=== PATIENT | female | born 1965 | race Caucasian/White ===

== ENCOUNTER → 2016-11-18 | Outpatient (CLI) | payer BC | LOC: M WUC 08:13 | PROVIDERS: ATTEND Family Medicine | DX: E03.8 Other specified hypothyroidism (principal) ==

== ENCOUNTER → 2017-01-31 | Outpatient (CLI) | payer BC ==
[2017-01-31 10:21] LABS: CHOLESTEROL LEVEL 214 MG/DL (<200); TRIGLYCERIDES LEVEL 210 MG/DL (<150); URIC ACID 5.1 MG/DL (2.6-6.0)
[2017-02-02 00:06] LABS: SJOGREN'S ANTI SS-A <0.2 AI (0.0-0.9); SJOGREN'S ANTI SS-B <0.2 AI (0.0-0.9)
== END ==
LOC: M WUC 08:03
PROVIDERS: ATTEND Family Medicine
DX: M77.42 Metatarsalgia, left foot (principal)

== ENCOUNTER → 2017-05-05 | Outpatient (CLI) | payer BC ==
--- NOTE | 2017-05-05 16:34 | REP ---
MRI LEFT FOOT: Multiple sequences obtained in the axial, coronal, and sagittal planes. There is ill-defined high signal on T2 weighted images in the proximal and mid thirds of the third metatarsal compatible with stress related marrow edema. No other stress fracture is seen. Arthritic change with mild subchondral marrow edema is seen at the joint between the middle cuneiform and base of the 2nd metatarsal. Ill defined soft tissue edema is seen in the dorsal soft tissues adjacent to the third metatarsal. Flexor and extensor tendons appear intact with no tenosynovitis. Mild joint effusion is seen at the tibial talar joint. No ganglion cyst is seen. Plantar tendon is intact. There is no plantar fasciitis. I see no other significant abnormality. IMPRESSION: There appears to be stress related marrow edema in the proximal and mid third of the shaft of the 3rd metatarsal. There is adjacent dorsal soft tissue edema. No other evidence of stress fracture. Signed by Jono Watters MD 05/05/2017 05:12 P
== END ==
LOC: M RAD 14:13
PROVIDERS: ATTEND Podiatrist
DX: S92.335A Nondisplaced fracture of third metatarsal bone, left foot, initial encounter for closed fracture (principal); M79.672 Pain in left foot; X58.XXXA Exposure to other specified factors, initial encounter; Y92.89 Other specified places as the place of occurrence of the external cause; Y93.89 Activity, other specified; Y99.8 Other external cause status

== ENCOUNTER 2017-10-02 15:55 | Emergency (ER) | payer BC ==
[2017-10-02] MEDS: NS 1,000 ML IV (17:37)
[2017-10-02] MEDS: METOCLOPRAMIDE INJ 10MG/2ML VIAL (J2765) IV (17:37)
[2017-10-02 18:11] LABS: INFLUENZA A AMPLIFICATION NEGATIVE (NEGATIVE); INFLUENZA B AMPLIFICATION NEGATIVE (NEGATIVE)
[2017-10-02 18:20] LABS: ANION GAP 8 MEQ/L (8-16); BLOOD UREA NITROGEN 16 MG/DL (7-18); CALCIUM LEVEL 9.3 MG/DL (8.5-10.1); CARBON DIOXIDE LEVEL 30 MEQ/L (21-32); CHLORIDE LEVEL 107 MEQ/L (98-107); CREATININE FOR GFR 0.83 MG/DL (0.55-1.30); GLOMERULAR FILTRATION RATE > 60.0 (>51); GLUCOSE, FASTING 107 MG/DL (70-100); POTASSIUM SERUM 4.1 MEQ/L (3.5-5.1); SODIUM LEVEL 145 MEQ/L (136-145)
== END 2017-10-02 19:29 | disposition home or self-care (01) ==
LOC: M ED 15:55
DX: A08.4 Viral intestinal infection, unspecified (principal); I10 Essential (primary) hypertension; Z98.890 Other specified postprocedural states
CPT/HCPCS: J2765

== ENCOUNTER → 2017-10-20 | Outpatient (CLI) | payer BC | LOC: M RAD 18:14 | DX: M79.671 Pain in right foot (principal); M77.31 Calcaneal spur, right foot | CPT/HCPCS: 73630 ==

== ENCOUNTER → 2017-10-20 | Outpatient (CLI) | payer BC ==
[2017-10-20 15:38] LABS: HEMATOCRIT 38.1 % (36.0-47.0); HEMOGLOBIN 13.2 g/dl (12.0-16.0); MEAN CORPUSCULAR HEMOGLOBIN 30.6 pg (27.0-33.0); MEAN CORPUSCULAR HGB CONC 34.6 g/dl (32.0-36.5); MEAN CORPUSCULAR VOLUME 88.2 fl (80.0-96.0); PLATELET COUNT, AUTOMATED 206 10^3/uL (150-450); RED BLOOD COUNT 4.32 10^6/uL (4.00-5.40); RED CELL DISTRIBUTION WIDTH 11.9 % (11.5-14.5); WHITE BLOOD COUNT 5.5 10^3/uL (4.0-10.0)
[2017-10-20 15:52] LABS: ALBUMIN 4.1 GM/DL (3.2-5.2); ALBUMIN/GLOBULIN RATIO 1.21 (1.00-1.93); ALKALINE PHOSPHATASE 58 U/L (45-117); ALT/SGPT 31 U/L (12-78); ANION GAP 6 MEQ/L (8-16); AST/SGOT 32 U/L (7-37); BILIRUBIN,TOTAL 0.5 MG/DL (0.2-1.0); BLOOD UREA NITROGEN 14 MG/DL (7-18); CALCIUM LEVEL 9.1 MG/DL (8.5-10.1); CARBON DIOXIDE LEVEL 30 MEQ/L (21-32); CHLORIDE LEVEL 103 MEQ/L (98-107); CREATININE FOR GFR 0.73 MG/DL (0.55-1.30); GLOMERULAR FILTRATION RATE > 60.0 (>51); GLUCOSE, FASTING 99 MG/DL (70-100); POTASSIUM SERUM 4.4 MEQ/L (3.5-5.1); SODIUM LEVEL 139 MEQ/L (136-145); TOTAL PROTEIN 7.5 GM/DL (6.4-8.2)
[2017-10-20 16:27] LABS: D-DIMER QUANT < 270.0 ng/ml (<500)
== END ==
LOC: M LAB 15:14
DX: I82.4Z1 Acute embolism and thrombosis of unspecified deep veins of right distal lower extremity (principal)
CPT/HCPCS: 93971

== ENCOUNTER → 2017-11-03 | Outpatient (CLI) | payer BC ==
[2017-11-03 17:10] LABS: URIC ACID 6.1 MG/DL (2.6-6.0)
[2017-11-03 17:10] LABS: RHEUMATOID FACTOR QUANT < 10.0 IU/ML (0-15.0)
[2017-11-03 18:13] LABS: ERYTHROCYTE SEDIMENTATION RATE 6 mm/hr (0-30)
[2017-11-04 09:18] LABS: DRVV SCREEN 40.4 SEC
[2017-11-06 00:06] LABS: CYCLIC CITRULLINATED PEPTIDE 7 units (0-19)
== END ==
LOC: M WUC 14:58
DX: M25.50 Pain in unspecified joint (principal)
CPT/HCPCS: 84550

== ENCOUNTER → 2017-12-08 | Outpatient (CLI) | payer BC | LOC: M RAD 09:26 | DX: M84.374A Stress fracture, right foot, initial encounter for fracture (principal); M77.31 Calcaneal spur, right foot; X58.XXXA Exposure to other specified factors, initial encounter; Y92.9 Unspecified place or not applicable; Y93.9 Activity, unspecified | CPT/HCPCS: 78315 ==

== ENCOUNTER → 2019-01-08 | Outpatient (CLI) | payer BC ==
[~2019-01-08] MED LIST: HYDR12.55; LEVO125T4; METO1TAB7; METO1TAB7 PO; OXYB10TA; PRIL20CA9 PO; REGL10TA6 PO; VITA100066 PO
[2019-01-08 12:44] LABS: HEMATOCRIT 39.4 % (36.0-47.0); HEMOGLOBIN 13.1 g/dl (12.0-15.5); MEAN CORPUSCULAR HEMOGLOBIN 29.9 pg (27.0-33.0); MEAN CORPUSCULAR HGB CONC 33.2 g/dl (32.0-36.5); PLATELET COUNT, AUTOMATED 205 10^3/uL (150-450); RED BLOOD COUNT 4.38 10^6/uL (4.00-5.40); WHITE BLOOD COUNT 3.8 10^3/uL (4.0-10.0)
[2019-01-08 12:52] LABS: ALBUMIN 3.9 GM/DL (3.2-5.2); ALT/SGPT 26 U/L (12-78); BILIRUBIN,TOTAL 0.5 MG/DL (0.2-1.0); BLOOD UREA NITROGEN 12 MG/DL (7-18); CALCIUM LEVEL 9.4 MG/DL (8.5-10.1); CARBON DIOXIDE LEVEL 31 MEQ/L (21-32); CHLORIDE LEVEL 106 MEQ/L (98-107); CHOLESTEROL LEVEL 178 MG/DL (<200); CHOLESTEROL RISK RATIO 4.238 (<5); CREATININE FOR GFR 0.77 MG/DL (0.55-1.30); GLOMERULAR FILTRATION RATE > 60.0 (>51); GLUCOSE, FASTING 96 MG/DL (70-100); HDL CHOLESTEROL 42 MG/DL (>40); LDL CHOLESTEROL 111 MG/DL (<100); NON-HDL-C 136 MG/DL; POTASSIUM SERUM 4.3 MEQ/L (3.5-5.1); SODIUM LEVEL 143 MEQ/L (136-145); TOTAL PROTEIN 6.5 GM/DL (6.4-8.2); TRIGLYCERIDES LEVEL 125 MG/DL (<150)
== END ==
LOC: M WUC 08:36
PROVIDERS: ATTEND Nurse Practitioner Family
DX: E03.8 Other specified hypothyroidism (principal); I10 Essential (primary) hypertension

== ENCOUNTER → 2019-06-24 | Outpatient (CLI) | payer BC ==
[~2019-06-24] MED LIST changes: -OXYB10TA; +OXYB10TA2
[2019-06-24 11:06] LABS: BLOOD UREA NITROGEN 12 MG/DL (7-18); CALCIUM LEVEL 9.5 MG/DL (8.5-10.1); CARBON DIOXIDE LEVEL 32 MEQ/L (21-32); CHLORIDE LEVEL 102 MEQ/L (98-107); CREATININE FOR GFR 0.73 MG/DL (0.55-1.30); FREE T3 2.3 PG/ML (2.2-4.0); FREE T4 1.04 NG/DL (0.76-1.46); GLOMERULAR FILTRATION RATE > 60.0 (>51); GLUCOSE, FASTING 84 MG/DL (70-100); SODIUM LEVEL 139 MEQ/L (136-145)
== END ==
LOC: M WUC 08:05
PROVIDERS: ATTEND Family Medicine
DX: E03.8 Other specified hypothyroidism (principal); I10 Essential (primary) hypertension

== ENCOUNTER → 2019-06-27 | Outpatient (REF) | payer BC | LOC: M LAB REF 08:13 | PROVIDERS: ATTEND Family Medicine | DX: K21.9 Gastro-esophageal reflux disease without esophagitis (principal) ==

== ENCOUNTER → 2020-03-02 | Outpatient (CLI) | payer BC ==
[~2020-03-02] MED LIST changes: -OXYB10TA2; +OXYB10TA23
[2020-03-02 09:21] LABS: HEMATOCRIT 40.8 % (36.0-47.0); HEMOGLOBIN 13.8 g/dl (12.0-15.5); MEAN CORPUSCULAR HEMOGLOBIN 30.3 pg (27.0-33.0); MEAN CORPUSCULAR HGB CONC 33.8 g/dl (32.0-36.5); MEAN CORPUSCULAR VOLUME 89.7 fl (80.0-96.0); PLATELET COUNT, AUTOMATED 198 10^3/uL (150-450); RED BLOOD COUNT 4.55 10^6/uL (4.00-5.40)
[2020-03-02 10:43] LABS: ALT/SGPT 27 U/L (12-78); BILIRUBIN,TOTAL 0.6 MG/DL (0.2-1.0); BLOOD UREA NITROGEN 16 MG/DL (7-18); CALCIUM LEVEL 9.2 MG/DL (8.5-10.1); CARBON DIOXIDE LEVEL 29 MEQ/L (21-32); CHLORIDE LEVEL 103 MEQ/L (98-107); CHOLESTEROL LEVEL 249 MG/DL (<200); CREATININE FOR GFR 0.76 MG/DL (0.55-1.30); GLOMERULAR FILTRATION RATE > 60.0 (>51); GLUCOSE, FASTING 85 MG/DL (70-100); HDL CHOLESTEROL 50 MG/DL (>40); LDL CHOLESTEROL 147 MG/DL (<100); NON-HDL-C 199 MG/DL; POTASSIUM SERUM 4.1 MEQ/L (3.5-5.1); SODIUM LEVEL 140 MEQ/L (136-145); TOTAL PROTEIN 7.2 GM/DL (6.4-8.2); TRIGLYCERIDES LEVEL 258 MG/DL (<150)
[2020-03-02 12:00] LABS: TOTAL 25(OH) VITAMIN D 18.3 NG/ML (30.0-100.0)
== END ==
LOC: M WUC 08:11
PROVIDERS: ATTEND Family Medicine
DX: E78.2 Mixed hyperlipidemia (principal)

== ENCOUNTER → 2020-06-17 | Outpatient (REF) | payer BC | LOC: M LAB REF 13:25 | PROVIDERS: ATTEND Nurse Practitioner Family | DX: N39.0 Urinary tract infection, site not specified (principal) ==

== ENCOUNTER → 2020-07-03 | Outpatient (CLI) | payer BC ==
[2020-07-03 10:49] LABS: CHOLESTEROL RISK RATIO 3.803 (<5); FREE T3 2.9 PG/ML (2.2-4.0); FREE T4 1.44 NG/DL (0.76-1.46); THYROID STIMULATING HORMONE 0.098 uIU/ML (0.358-3.740)
== END ==
LOC: M WUC 08:02
PROVIDERS: ATTEND Family Medicine
DX: E78.2 Mixed hyperlipidemia (principal); E03.9 Hypothyroidism, unspecified

== ENCOUNTER → 2020-10-05 | Outpatient (CLI) | payer BC ==
[2020-10-05 12:57] LABS: FREE T3 3.1 PG/ML (2.2-4.0); FREE T4 1.4 NG/DL (0.76-1.46); THYROID STIMULATING HORMONE 0.108 uIU/ML (0.358-3.740)
[2020-10-05 12:58] LABS: TOTAL 25(OH) VITAMIN D 39.7 NG/ML (30.0-100.0)
== END ==
LOC: M WUC 09:04
PROVIDERS: ATTEND Registered Nurse
DX: E03.2 Hypothyroidism due to medicaments and other exogenous substances (principal); E55.9 Vitamin D deficiency, unspecified

== ENCOUNTER → 2020-11-30 | Outpatient (CLI) | payer BC ==
[2020-11-30 14:02] LABS: FREE T3 2.5 PG/ML (2.2-4.0); FREE T4 0.98 NG/DL (0.76-1.46); THYROID STIMULATING HORMONE 1.15 uIU/ML (0.358-3.740)
== END ==
LOC: M WUC 08:11
PROVIDERS: ATTEND Family Medicine
DX: E03.9 Hypothyroidism, unspecified (principal)

== ENCOUNTER → 2021-03-12 | Outpatient (CLI) | payer BC ==
[2021-03-12 10:32] LABS: HEMATOCRIT 40.8 % (36.0-47.0); HEMOGLOBIN 13.5 g/dl (12.0-15.5); MEAN CORPUSCULAR HEMOGLOBIN 30.4 pg (27.0-33.0); MEAN CORPUSCULAR HGB CONC 33.1 g/dl (32.0-36.5); MEAN CORPUSCULAR VOLUME 91.9 fl (80.0-96.0); PLATELET COUNT, AUTOMATED 209 10^3/uL (150-450); RED BLOOD COUNT 4.44 10^6/uL (4.00-5.40); WHITE BLOOD COUNT 5.3 10^3/uL (4.0-10.0)
[2021-03-12 11:13] LABS: ALBUMIN 3.7 GM/DL (3.2-5.2); ALT/SGPT 25 U/L (12-78); BILIRUBIN,TOTAL 0.5 MG/DL (0.2-1.0); BLOOD UREA NITROGEN 17 MG/DL (7-18); CALCIUM LEVEL 9.1 MG/DL (8.5-10.1); CARBON DIOXIDE LEVEL 34 MEQ/L (21-32); CHLORIDE LEVEL 105 MEQ/L (98-107); CHOLESTEROL LEVEL 245 MG/DL (<200); CHOLESTEROL RISK RATIO 4.454 (<5); CREATININE FOR GFR 0.76 MG/DL (0.55-1.30); FREE T3 2.4 PG/ML (2.2-4.0); GLOMERULAR FILTRATION RATE > 60.0 (>51); GLUCOSE, FASTING 89 MG/DL (70-100); HDL CHOLESTEROL 55 MG/DL (>40); LDL CHOLESTEROL 154 MG/DL (<100); NON-HDL-C 190 MG/DL; POTASSIUM SERUM 4.7 MEQ/L (3.5-5.1); SODIUM LEVEL 142 MEQ/L (136-145); TOTAL PROTEIN 6.8 GM/DL (6.4-8.2); TRIGLYCERIDES LEVEL 182 MG/DL (<150); URIC ACID 5.2 MG/DL (2.6-6.0)
== END ==
LOC: M WUC 08:19
PROVIDERS: ATTEND Family Medicine
DX: E03.8 Other specified hypothyroidism (principal); K21.9 Gastro-esophageal reflux disease without esophagitis; I10 Essential (primary) hypertension; L82.1 Other seborrheic keratosis; R00.2 Palpitations

== ENCOUNTER → 2021-06-26 | Outpatient (CLI) | payer BC ==
[2021-06-26 10:28] LABS: BASO # 0.1 10^3/uL (0.0-0.2); BASO % 1.1 % (0.0-1.0); EOS # 0.2 10^3/uL (0.0-0.5); EOS % 3.6 % (0.0-3.0); HEMATOCRIT 41.4 % (36.0-47.0); LYMPH # 1.7 10^3/uL (1.5-5.0); LYMPH % 31.3 % (24.0-44.0); MEAN CORPUSCULAR HEMOGLOBIN 30.6 pg (27.0-33.0); MEAN CORPUSCULAR HGB CONC 33.8 g/dl (32.0-36.5); MEAN CORPUSCULAR VOLUME 90.6 fl (80.0-96.0); MONO # 0.5 10^3/uL (0.0-0.8); MONO % 9.8 % (2.0-8.0); PLATELET COUNT, AUTOMATED 217 10^3/uL (150-450); RED BLOOD COUNT 4.57 10^6/uL (4.00-5.40); WHITE BLOOD COUNT 5.5 10^3/uL (4.0-10.0)
[2021-06-26 12:32] LABS: ALBUMIN 3.8 GM/DL (3.2-5.2); ALT/SGPT 27 U/L (12-78); BILIRUBIN,TOTAL 0.6 MG/DL (0.2-1.0); BLOOD UREA NITROGEN 15 MG/DL (7-18); CALCIUM LEVEL 9.6 MG/DL (8.5-10.1); CARBON DIOXIDE LEVEL 33 MEQ/L (21-32); CHLORIDE LEVEL 104 MEQ/L (98-107); CHOLESTEROL LEVEL 248 MG/DL (<200); CHOLESTEROL RISK RATIO 4.592 (<5); CPK CREATINE PHOSPHOKINASE 231 U/L (26-192); CREATININE FOR GFR 0.76 MG/DL (0.55-1.30); FREE T3 2.4 PG/ML (2.2-4.0); FREE T4 1.02 NG/DL (0.76-1.46); GLOMERULAR FILTRATION RATE > 60.0 (>51); GLUCOSE, FASTING 99 MG/DL (70-100); HDL CHOLESTEROL 54 MG/DL (>40); LDL CHOLESTEROL 160 MG/DL (<100); NON-HDL-C 194 MG/DL; POTASSIUM SERUM 3.9 MEQ/L (3.5-5.1); SODIUM LEVEL 141 MEQ/L (136-145); TOTAL PROTEIN 7.1 GM/DL (6.4-8.2); TRIGLYCERIDES LEVEL 170 MG/DL (<150); URIC ACID 5.5 MG/DL (2.6-6.0)
== END ==
LOC: M WUC 08:01
PROVIDERS: ATTEND Family Medicine
DX: E78.2 Mixed hyperlipidemia (principal); I10 Essential (primary) hypertension; E03.8 Other specified hypothyroidism

== ENCOUNTER → 2022-02-12 | Outpatient (CLI) | payer BC ==
[2022-02-12 13:30] LABS: BLOOD UREA NITROGEN 14 MG/DL (7-18); CALCIUM LEVEL 9.4 MG/DL (8.5-10.1); CARBON DIOXIDE LEVEL 32 MEQ/L (21-32); CHLORIDE LEVEL 107 MEQ/L (98-107); CREATININE FOR GFR 0.74 MG/DL (0.55-1.30); FREE T3 2.4 PG/ML (2.2-4.0); FREE T4 1.13 NG/DL (0.76-1.46); GLOMERULAR FILTRATION RATE > 60.0 (>51); GLUCOSE, FASTING 101 MG/DL (70-100); POTASSIUM SERUM 4.4 MEQ/L (3.5-5.1); SODIUM LEVEL 142 MEQ/L (136-145); URIC ACID 4.7 MG/DL (2.6-6.0)
== END ==
LOC: M WUC 09:34
PROVIDERS: ATTEND Family Medicine
DX: E03.8 Other specified hypothyroidism (principal); I10 Essential (primary) hypertension; E55.9 Vitamin D deficiency, unspecified

== ENCOUNTER → 2022-06-27 | Outpatient (CLI) | payer BC ==
[2022-06-27 11:46] LABS: BLOOD UREA NITROGEN 18 MG/DL (7-18); CALCIUM LEVEL 9.1 MG/DL (8.5-10.1); CARBON DIOXIDE LEVEL 33 MEQ/L (21-32); CHLORIDE LEVEL 102 MEQ/L (98-107); CREATININE FOR GFR 0.65 MG/DL (0.55-1.30); GLOMERULAR FILTRATION RATE > 60.0 (>51); GLUCOSE, FASTING 99 MG/DL (70-100); POTASSIUM SERUM 3.8 MEQ/L (3.5-5.1); SODIUM LEVEL 140 MEQ/L (136-145); THYROXINE (T4) 10.2 UG/DL (4.5-12.0); URIC ACID 4.8 MG/DL (2.6-6.0)
[2022-06-27 12:18] LABS: TOTAL T3 77.2 NG/DL (60.0-181.0)
== END ==
LOC: M WUC 08:33
PROVIDERS: ATTEND Family Medicine
DX: I10 Essential (primary) hypertension (principal); E03.8 Other specified hypothyroidism; E55.9 Vitamin D deficiency, unspecified

== ENCOUNTER → 2022-09-24 | Outpatient (CLI) | payer BC | LOC: M WUC 08:06 | PROVIDERS: ATTEND Physician Assistant Medical | DX: K29.40 Chronic atrophic gastritis without bleeding (principal) ==

== ENCOUNTER → 2022-09-24 | Outpatient (CLI) | payer BC ==
[2022-09-24 11:31] LABS: BASO # 0.1 10^3/uL (0.0-0.2); BASO % 1.4 % (0.0-1.0); EOS # 0.2 10^3/uL (0.0-0.5); EOS % 4.8 % (0.0-3.0); HEMATOCRIT 37.5 % (36.0-47.0); HEMOGLOBIN 12.5 g/dl (12.0-15.5); LYMPH # 1.4 10^3/uL (1.5-5.0); MEAN CORPUSCULAR HEMOGLOBIN 30.6 pg (27.0-33.0); MEAN CORPUSCULAR HGB CONC 33.3 g/dl (32.0-36.5); MEAN CORPUSCULAR VOLUME 91.9 fl (80.0-96.0); MONO # 0.4 10^3/uL (0.0-0.8); MONO % 8.2 % (2.0-8.0); NEUTROPHILS # 2.4 10^3/uL (1.5-8.5); NEUTROPHILS % 54.4 % (36.0-66.0); PLATELET COUNT, AUTOMATED 212 10^3/uL (150-450); RED BLOOD COUNT 4.08 10^6/uL (4.00-5.40); WHITE BLOOD COUNT 4.4 10^3/uL (4.0-10.0)
[2022-09-24 12:03] LABS: ALBUMIN 3.7 G/DL (3.2-5.2); ALKALINE PHOSPHATASE 71 U/L (46-116); ALT/SGPT 18 U/L (7.0-40); AST/SGOT 26 U/L (<34); BILIRUBIN,TOTAL 0.6 MG/DL (0.3-1.2); BLOOD UREA NITROGEN 17 MG/DL (9-23); CARBON DIOXIDE LEVEL 34 MMOL/L (20-31); CHLORIDE LEVEL 101 MMOL/L (98-107); CREATININE FOR GFR 0.74 MG/DL (0.55-1.30); GLOMERULAR FILTRATION RATE > 60.0 (>51); GLUCOSE, FASTING 89 MG/DL (60-100); POTASSIUM SERUM 3.9 MMOL/L (3.5-5.1); SODIUM LEVEL 140 MMOL/L (136-145); TOTAL PROTEIN 6.7 G/DL (5.7-8.2)
[2022-09-24 12:05] LABS: FREE T4 1.35 NG/DL (0.89-1.76); THYROID STIMULATING HORMONE 3.078 uIU/ML (0.55-4.78)
== END ==
LOC: M WUC 08:09
PROVIDERS: ATTEND Family Medicine
DX: E03.8 Other specified hypothyroidism (principal); I10 Essential (primary) hypertension

== ENCOUNTER 2022-11-23 18:59 | Emergency (ER) | payer BC ==
[~2022-11-23] VITALS: Ht 162.6 cm; Wt 74.8 kg
[2022-11-23] MEDS ORDERED: NORCO, ANEXSIA 5/325MG TABLET (HYDROcodone/ACETAMINOPHEN) PO ONE (20:15)
[2022-11-23] MEDS ORDERED: NS 1,000 ML IV ONE (20:15)
[2022-11-23 21:11] LABS: BASO # 0.1 10^3/uL (0.0-0.2); BASO % 0.5 % (0.0-1.0); EOS % 0.4 % (0.0-3.0); HEMATOCRIT 39.8 % (36.0-47.0); HEMOGLOBIN 13.4 g/dl (12.0-15.5); LYMPH # 0.9 10^3/uL (1.5-5.0); LYMPH % 8.8 % (24.0-44.0); MEAN CORPUSCULAR HEMOGLOBIN 30.5 pg (27.0-33.0); MEAN CORPUSCULAR HGB CONC 33.7 g/dl (32.0-36.5); MEAN CORPUSCULAR VOLUME 90.5 fl (80.0-96.0); MONO # 0.4 10^3/uL (0.0-0.8); NEUTROPHILS # 8.6 10^3/uL (1.5-8.5); NEUTROPHILS % 85.8 % (36.0-66.0); PLATELET COUNT, AUTOMATED 234 10^3/uL (150-450)
[2022-11-23 21:22] LABS: INR 0.97; PROTHROMBIN TIME 13.1 SECONDS (12.5-14.5)
[2022-11-23 21:23] LABS: PARTIAL THROMBOPLASTIN TIME 25.4 SECONDS (24.8-34.2)
[2022-11-23 21:30] LABS: LIPASE 34 U/L (12-53)
[2022-11-23 21:32] LABS: ALBUMIN 4.3 G/DL (3.2-5.2); ALKALINE PHOSPHATASE 76 U/L (46-116); ALT/SGPT 30 U/L (7.0-40); AMYLASE 183 U/L (30-118); AST/SGOT 17 U/L (<34); BILIRUBIN,DIRECT 0.2 MG/DL (<0.4); BILIRUBIN,TOTAL 0.7 MG/DL (0.3-1.2); BLOOD UREA NITROGEN 15 MG/DL (9-23); CALCIUM LEVEL 9.4 MG/DL (8.5-10.1); CARBON DIOXIDE LEVEL 30 MMOL/L (20-31); CHLORIDE LEVEL 101 MMOL/L (98-107); CREATININE FOR GFR 0.66 MG/DL (0.55-1.30); GLOMERULAR FILTRATION RATE > 60.0 (>51); GLUCOSE, FASTING 136 MG/DL (60-100); POTASSIUM SERUM 3.6 MMOL/L (3.5-5.1); SODIUM LEVEL 139 MMOL/L (136-145); TOTAL PROTEIN 7.4 G/DL (5.7-8.2)
[2022-11-23] MEDS ORDERED: ISOVUE-370 76% 100ML VIAL As Ordered ONE (21:43)
[2022-11-23 22:44] VITALS: BP 138/81
[2022-11-23] MEDS ORDERED: ACETAMINOPHEN 500 MG TAB PO ONE (22:50)
[2022-11-23] MEDS ORDERED: METH-1164 PO (23:09)
== END 2022-11-23 22:50 | disposition home or self-care (01) ==
LOC: M ED 18:59
DX: S30.0XXA Contusion of lower back and pelvis, initial encounter (principal); V86.95XA Unspecified occupant of 3- or 4- wheeled all-terrain vehicle (ATV) injured in nontraffic accident, initial encounter; Y92.89 Other specified places as the place of occurrence of the external cause; Y93.89 Activity, other specified; Y99.8 Other external cause status; I10 Essential (primary) hypertension; E03.9 Hypothyroidism, unspecified; K21.9 Gastro-esophageal reflux disease without esophagitis; Z88.6 Allergy status to analgesic agent; Z79.899 Other long term (current) drug therapy
CPT/HCPCS: 36415; 70450; 71260; 72125; 72128; 72131; 74177; 80048; 80076; 82150; 83690; 85025; 85610; 85730; 99284; Q9967

== ENCOUNTER → 2023-06-09 | Outpatient (CLI) | payer BC ==
[~2023-06-09] MED LIST changes: +METH-1164 PO
[2023-06-09 10:55] LABS: BASO # 0.1 10^3/uL (0.0-0.2); BASO % 1.2 % (0.0-1.0); EOS # 0.2 10^3/uL (0.0-0.5); EOS % 3.2 % (0.0-3.0); HEMATOCRIT 40.6 % (36.0-47.0); HEMOGLOBIN 13.6 g/dl (12.0-15.5); LYMPH # 1.5 10^3/uL (1.5-5.0); LYMPH % 29.8 % (24.0-44.0); MEAN CORPUSCULAR HEMOGLOBIN 30.5 pg (27.0-33.0); MEAN CORPUSCULAR HGB CONC 33.5 g/dl (32.0-36.5); MONO # 0.4 10^3/uL (0.0-0.8); MONO % 8.7 % (2.0-8.0); NEUTROPHILS # 2.8 10^3/uL (1.5-8.5); NEUTROPHILS % 56.7 % (36.0-66.0); PLATELET COUNT, AUTOMATED 215 10^3/uL (150-450); RED BLOOD COUNT 4.46 10^6/uL (4.00-5.40); WHITE BLOOD COUNT 4.9 10^3/uL (4.0-10.0)
[2023-06-10 04:12] LABS: MAU/CREAT RATIO 4.3 MCG/MG (0.0-30.0)
[2023-06-10 05:19] LABS: URIC ACID 5.8 MG/DL (3.1-7.8)
[2023-06-10 05:27] LABS: ALBUMIN 3.8 G/DL (3.2-5.2); ALKALINE PHOSPHATASE 76 U/L (46-116); ALT/SGPT 19 U/L (7.0-40); AST/SGOT 18 U/L (<34); BILIRUBIN,TOTAL 0.4 MG/DL (0.3-1.2); BLOOD UREA NITROGEN 10 MG/DL (9-23); CALCIUM LEVEL 9.2 MG/DL (8.5-10.1); CARBON DIOXIDE LEVEL 33 MMOL/L (20-31); CHLORIDE LEVEL 101 MMOL/L (98-107); CHOLESTEROL LEVEL 232 MG/DL (<200); CHOLESTEROL RISK RATIO 5.09 (<5); CREATININE FOR GFR 0.71 MG/DL (0.55-1.30); FREE T4 1.18 NG/DL (0.89-1.76); GLOMERULAR FILTRATION RATE > 60.0 (>51); GLUCOSE, FASTING 87 MG/DL (60-100); HDL CHOLESTEROL 45.5 MG/DL (>40); LDL CHOLESTEROL 119.3 MG/DL (<100); NON-HDL-C 186.5 MG/DL; POTASSIUM SERUM 4.1 MMOL/L (3.5-5.1); SODIUM LEVEL 140 MMOL/L (136-145); THYROID STIMULATING HORMONE 5.695 uIU/ML (0.55-4.78); TOTAL 25(OH) VITAMIN D 34.5 NG/ML (20.0-100.0); TOTAL PROTEIN 6.7 G/DL (5.7-8.2); TRIGLYCERIDES LEVEL 336 MG/DL (<150)
== END ==
LOC: M WUC 08:18
PROVIDERS: ATTEND Family Medicine
DX: E66.3 Overweight (principal); N39.41 Urge incontinence; M85.80 Other specified disorders of bone density and structure, unspecified site; E03.9 Hypothyroidism, unspecified

== ENCOUNTER → 2023-09-08 | Outpatient (CLI) | payer BC ==
[2023-09-08 11:42] LABS: CHOLESTEROL RISK RATIO 3.94 (<5); HDL CHOLESTEROL 55.8 MG/DL (>40); NON-HDL-C 164.2 MG/DL
[2023-09-08 11:44] LABS: FREE T4 1.31 NG/DL (0.89-1.76)
[2023-09-08 11:45] LABS: FREE T3 2.7 PG/ML (2.3-4.2); THYROID STIMULATING HORMONE 3.105 uIU/ML (0.55-4.78)
== END ==
LOC: M WUC 08:21
PROVIDERS: ATTEND Registered Nurse
DX: E03.9 Hypothyroidism, unspecified (principal)

== ENCOUNTER → 2023-10-24 | Outpatient (CLI) | payer BC | LOC: M RAD 12:12 | PROVIDERS: ATTEND Family Medicine | DX: R10.9 Unspecified abdominal pain (principal); R32 Unspecified urinary incontinence; Z90.710 Acquired absence of both cervix and uterus ==

== ENCOUNTER → 2023-11-04 | Outpatient (CLI) | payer BC ==
[2023-11-04 11:58] LABS: ALBUMIN 3.8 G/DL (3.2-5.2); CALCIUM LEVEL 9.2 MG/DL (8.5-10.1); CHOLESTEROL RISK RATIO 4.53 (<5); HDL CHOLESTEROL 43.2 MG/DL (>40); LDL CHOLESTEROL 106.6 MG/DL (<100); NON-HDL-C 152.8 MG/DL
[2023-11-04 12:00] LABS: THYROID STIMULATING HORMONE 0.305 uIU/ML (0.55-4.78); TOTAL 25(OH) VITAMIN D 25.9 NG/ML (20.0-100.0)
[2023-11-04 12:01] LABS: FREE T4 1.36 NG/DL (0.89-1.76)
== END ==
LOC: M WUC 08:02
PROVIDERS: ATTEND Family Medicine
DX: E03.8 Other specified hypothyroidism (principal)

== ENCOUNTER → 2024-03-01 | Outpatient (CLI) | payer BC ==
[2024-03-01 12:04] LABS: CHOLESTEROL RISK RATIO 5.12 (<5); HDL CHOLESTEROL 45.1 MG/DL (>40); LDL CHOLESTEROL 131.5 MG/DL (<100); NON-HDL-C 185.9 MG/DL
[2024-03-01 12:08] LABS: THYROID STIMULATING HORMONE 1.245 uIU/ML (0.55-4.78)
[2024-03-01 12:09] LABS: FREE T4 1.42 NG/DL (0.89-1.76)
== END ==
LOC: M WUC 08:20
PROVIDERS: ATTEND Family Medicine
DX: E03.9 Hypothyroidism, unspecified (principal)

== ENCOUNTER → 2024-11-05 | Outpatient (CLI) | payer BC ==
[2024-11-05 13:27] LABS: BASO # 0.1 10^3/uL (0.0-0.2); BASO % 1.5 % (0.0-1.0); EOS # 0.3 10^3/uL (0.0-0.5); EOS % 6.4 % (0.0-3.0); HEMATOCRIT 39.2 % (36.0-47.0); LYMPH # 1.5 10^3/uL (1.5-5.0); LYMPH % 36.2 % (24.0-44.0); MEAN CORPUSCULAR HEMOGLOBIN 29.7 pg (27.0-33.0); MEAN CORPUSCULAR HGB CONC 33.2 g/dl (32.0-36.5); MEAN CORPUSCULAR VOLUME 89.7 fl (80.0-96.0); MONO # 0.5 10^3/uL (0.0-0.8); MONO % 11.6 % (2.0-8.0); NEUTROPHILS # 1.8 10^3/uL (1.5-8.5); NEUTROPHILS % 44.1 % (36.0-66.0); PLATELET COUNT, AUTOMATED 212 10^3/uL (150-450); RED BLOOD COUNT 4.37 10^6/uL (4.00-5.40); WHITE BLOOD COUNT 4.1 10^3/uL (4.0-10.0)
[2024-11-05 13:45] LABS: CREATININE, URINE 189.5 MG/DL; MAU/CREAT RATIO 2.6 MCG/MG (0.0-30.0)
[2024-11-05 13:57] LABS: URIC ACID 5.7 MG/DL (3.1-7.8)
[2024-11-05 14:00] LABS: ALBUMIN 3.8 G/DL (3.2-5.2); ALKALINE PHOSPHATASE 72 U/L (35-104); ALT/SGPT 22 U/L (7.0-40); AST/SGOT 21 U/L (<34); BILIRUBIN,TOTAL 0.6 MG/DL (0.3-1.2); BLOOD UREA NITROGEN 12 MG/DL (9-23); CALCIUM LEVEL 9.2 MG/DL (8.5-10.1); CARBON DIOXIDE LEVEL 32 MMOL/L (20-31); CHLORIDE LEVEL 105 MMOL/L (98-107); CHOLESTEROL LEVEL 217 MG/DL (<200); CHOLESTEROL RISK RATIO 4.59 (<5); CPK CREATINE PHOSPHOKINASE 150 U/L (34-145); CREATININE FOR GFR 0.72 MG/DL (0.55-1.30); GLOMERULAR FILTRATION RATE > 60.0 (>51); GLUCOSE, FASTING 98 MG/DL (60-100); HDL CHOLESTEROL 47.2 MG/DL (>40); LDL CHOLESTEROL 142.8 MG/DL (<100); MAGNESIUM LEVEL 2.2 MG/DL (1.8-2.4); NON-HDL-C 169.8 MG/DL; POTASSIUM SERUM 4.3 MMOL/L (3.5-5.1); SODIUM LEVEL 144 MMOL/L (136-145); TOTAL PROTEIN 6.9 G/DL (5.7-8.2); TRIGLYCERIDES LEVEL 135 MG/DL (<150)
[2024-11-05 14:01] LABS: THYROID STIMULATING HORMONE 1.681 uIU/ML (0.55-4.78)
[2024-11-05 14:02] LABS: FREE T4 1.36 NG/DL (0.89-1.76); TOTAL 25(OH) VITAMIN D 33.7 NG/ML (20.0-100.0)
[2024-11-05 14:04] LABS: FREE T3 3.2 PG/ML (2.3-4.2)
== END ==
LOC: M WUC 08:08
PROVIDERS: ATTEND Registered Nurse
DX: E55.9 Vitamin D deficiency, unspecified (principal); E03.9 Hypothyroidism, unspecified; E78.2 Mixed hyperlipidemia; D50.9 Iron deficiency anemia, unspecified; I10 Essential (primary) hypertension; K21.9 Gastro-esophageal reflux disease without esophagitis; R80.9 Proteinuria, unspecified; R53.83 Other fatigue; R00.2 Palpitations